=== PATIENT | male | born 1955 | race Caucasian/White ===

== ENCOUNTER 2024-04-07 10:30 | Outpatient (AMB) | payer OTHER, SELFPAY ==
--- NOTE | 2024-04-07 10:44 | MHC.OFFWIV ---
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 Started Saturday after opening tailgate on [employer]. Only hurts when moving. 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 Patient has tried Tylenol and he with limited effect. Patient denies any saddle anesthesia, lower extremity paresthesias, loss of bowel or bladder function. Patient denies any significant past medical history, denies taking any daily medications. He drinks socially, and smokes regularly. [facility] Social History Patient Tobacco Use Status: Current everyday Tobacco user Review of Systems Const Reports as per HPI, Denies fever(s), Denies headache(s) and Denies weakness ENT Denies headache(s) Card Denies dyspnea Resp Denies dyspnea GI Denies change in bowel habits and Denies fecal incontinence Denies urinary incontinence Musc Reports as per HPI, Reports back pain, Denies numbness, Denies radiating pain into limb, Reports stiffness and Denies tingling Neuro Denies headache(s), Denies numbness, Denies tingling and Denies weakness Physical Exam Vital Signs: Last Vital Signs Temp 98.6 F 04/07/24 10:45 Pulse 57 04/07/24 10:45 BP 128/76 04/07/24 10:45 Pulse Ox 98 04/07/24 10:45 Oxygen Delivery Method Room Air 04/07/24 10:45 BMI result Body Mass Index 26.3 Const General: cooperative, healthy appearing and no acute distress Orientation/consciousness: patient oriented x3 HEENT Head: Yes normal to inspection Neck Neck: Yes full ROM General: Yes no CVA tenderness Back/Spine/Pelvis Other: Unable to perform started exercising SLR, patient unable to climb on the exam table. Notably limited range of motion of lumbar spine, patient ambulates with antalgic gait, using a cane which is not his baseline Back: no CVA tenderness Cervical Spine: cervical ROM normal Thoracic/Lumbar Spine: thoracic and lumbar spine normal to inspection, paraspinal muscle tenderness, thoraco-lumbar ROM limited, thoraco-lumbar spasm and No straight leg raise positive Neuro General: patient oriented x3 Assessment & Plan Assessment & Plan (1) Acute low back pain: Code(s): M54.50 - Low back pain, unspecified Qualifiers: Back pain laterality: bilateral Sciatica presence: without sciatica Qualified Code(s): M54.50 - Low back pain, unspecified Plan: Given acute onset and patient age, will assess for spondylosis or spondylolisthesis, low concern for fracture. Patient educated in routine exercise and movement for low back pain, prescribed ibuprofen t.i.d., and baclofen as needed. Reviewed ED precautions, risks and benefits of medications, and discouraged overuse of either the anti-inflammatory for the muscle relaxant. Orders: Orders XR lumbar spine 2-3V Today M54.50 - Low back pain, unspecified Medications: New ibuprofen Take TID for 7 days, then every 8 hours as needed for pain 800 mg PO Q8H PRN 30 tabs 0RF pain, moderate baclofen Take one to two tablet as needed for muscle spasm every 8 hours 5 mg PO TID PRN 20 tabs 0RF muscle spasm Coding Level of Care Code New Pt Level 4 (98602) Diagnoses Acute bilateral low back pain without sciatica M54.50 Back pain laterality: bilateral Sciatica presence: without sciatica
[2024-04-07 10:45] VITALS: BP 128/76; PULSE 57; TEMP 37; O2SAT 98; BMI 26.3
== END 2024-04-07 11:32 | disposition home or self-care (01) ==
PROVIDERS: Visit Provider Emergency Medicine
DX: M54.50 Low back pain, unspecified (principal)
CPT/HCPCS: 99203

== ENCOUNTER 2024-04-07 11:21 | Outpatient (REF) | payer OTHER, SELFPAY ==
--- NOTE | ~2024-04-07 | XR_ITS ---
EXAMINATION: XR LUMBOSACRAL SPINE CLINICAL INFORMATION: Lower back pain. COMPARISON: Lumbar spine radiographs dated 06/03/2017. TECHNIQUE: Three views of the lumbosacral spine. FINDINGS: Normal vertebral body alignment. The lumbar lordosis is maintained. No acute fracture or subluxation. No loss of vertebral body height. Mild multilevel loss of intervertebral disc with small endplate osteophytes, similar when compared to the prior examination. No concerning lytic or blastic osseous lesion. Atherosclerotic calcifications. XR/XR lumbar spine 2-3V IMPRESSION: Mild multilevel degenerative disc disease, similar when compared to the prior examination. Electronically signed by: Ochoa Rahman MD 04/27/2024 09:13 PM EDT
== END 2024-04-07 11:22 | disposition home or self-care (01) ==
LOC: HO.HMGCX 11:21
PROVIDERS: Visit Provider Emergency Medicine
DX: M54.50 Low back pain, unspecified (principal)
CPT/HCPCS: 72100

== ENCOUNTER 2025-06-07 11:10 | Outpatient (AMB) | payer OTHER, SELFPAY ==
--- NOTE | 2025-06-07 12:18 | MHC.OFFWIV ---
Intake Vital Signs 06/07/25 12:19 Height 5 ft 7.5 in Weight 170 lb BMI 26.2 BP 160/80 H Blood Pressure Location Lt brachial Position Sitting Pulse 77 Pulse Source Pulse Oximeter Temp 99 F Temp Source Oral Pulse Oximetry (%) 99 Oxygen Delivery Method Room Air Intake Visit Reasons: EP-stomach issues, body ache Intake Note: Patient presents with c/o inability to urinate, groin pain x3 days. Patient Tobacco Use Status: Current everyday Tobacco user Allergies No Known Allergies Allergy (Verified 06/07/25 12:21) Do you need a note to return to daycare/school/sports/work: No HPI HPI Comments History of Present Illness Details 70 y/o Male patient who presents to the walk in clinic with c/o Inability to Urinate for 3 days. Reports attempting to urinate but very little urine comes out. Reports burning with urination and bladder pressure. Reports that the urine has foul odor and Mucoid in color. He did have an episode of diarrhea on Saturday. Denies fevers, chills, nausea or vomiting. [facility] Medical History (Updated 06/07/25 @ 13:29 by Loraine Branch NP) Urinary retention with incomplete bladder emptying Social History Patient Tobacco Use Status: Current everyday Tobacco user Review of Systems Const All systems reviewed & are unremarkable except as noted in HPI and below Physical Exam Vital Signs: Last Vital Signs Temp 99 F 06/07/25 12:19 Pulse 77 06/07/25 12:19 BP 160/80 H 06/07/25 12:19 Pulse Ox 99 06/07/25 12:19 Oxygen Delivery Method Room Air 06/07/25 12:19 BMI result Body Mass Index 26.2 Const General: no acute distress; No comfortable Nutritional Appearance: overweight Orientation/consciousness: patient oriented x3 Resp Effort & Inspection: normal respiratory effort Cardio Heart sounds: S1 normal heart sound present and S2 normal heart sound present GI Inspection: Yes distended and Yes obesity Palpation (GI): Soft to palpation, not firm, Tenderness to palpation present (GI) periumbilically and suprapubicly, no guarding, not rigid and No hepatosplenomegaly present Auscultation: Hypoactive bowel sounds present Rectal Exam - Male: Yes deferred General: Yes no CVA tenderness Back/Spine/Pelvis Back: no CVA tenderness Neuro General: patient oriented x3 Assessment & Plan Assessment & Plan (1) Urinary retention with incomplete bladder emptying: Code(s): R33.9 - Retention of urine, unspecified Plan: Advised to go to ED for further evaluation. Pt might need Straight Cath or Escobar Catheter. Pt agreed and he will drive himself to the [facility] ED today. Coding Level of Care Code New Pt Level 4 (96242) Diagnoses Urinary retention with incomplete bladder emptying R33.9 Time Spent (min) 20
[2025-06-07 12:19] VITALS: BP 160/80; PULSE 77; TEMP 37.2; O2SAT 99; BMI 26.2
--- OUTSIDE RECORDS SUMMARY | 2025-06-07 14:17 | XMS_ITS | Clinical Summary ---
Author Organization [facility] Address [address] [place] [address] Phone Care Team Providers Care Culinary Instructor Name Role Phone Saw Walden MD Primary Care Provider [phone] Medical History Medical History Date Comments Hypertension 12/27/2017 DX:Hypertension Depression 12/27/2017 DX:Depression Anxiety 12/27/2017 DX:Anxiety Vitamin D deficiency 12/27/2017 DX:Vitamin D deficiency Hyperlipidemia 12/27/2017 DX:Hyperlipidemi a CAD (coronary artery disease) 12/09/2017 DX :CAD (coronary artery disease); COMMENT: 01/2014 EF 60-65%; [place] 03/2011 d/t cocaine use, s/p RCA stent with repeat stenting and angioplasty. Dr. Dawn; Erectile dysfunction 12/09/2017 DX:Erectile dysfunction Tobacco dependence 12/09/2017 DX:Tobacco de pendence History of substance abuse ( [facility] V24, [facility] V28) 04/09/2018 DX:History of substance abus e ([facility]); COMMENT: 2012 hx alcohol w/d; cocaine Prediabetes 04/09/2018 DX:Prediabetes DDD (degenerative disc disease), lumbar 12/10/19 18 DX:DDD (degenerative disc disease), lumbar; COMMENT: Left foot drop, follows w/ [facility] Family History Medical History Relation Name Comments No Known Problems Brother No Known Problems Daughter 1 No Known Problems Daughter 2 Pneumonia Father Diabetes Mother No Known Problems Sister No Known Problems Son 1 No Known Problems Son 2 No Known Problems Son 3 Relation Name Status Comments Brother Alive Daughter 1 Alive Daughter 2 Alive Father Mother Alive Sister Alive Son 1 Alive Son 2 Alive Son 3 Alive Social History Tobacco Use Types Packs/Day Years Used Date Smoking Tobacco: Every Day Cigarettes Smokeless Tobacco: Never Alcohol Use Standard Drinks/Week Comments Yes 0 (1 standard drink = 0.6 oz pur e alcohol) Sex and Gender Information Value Date Recorded Sex Assigned at Not on file Legal Sex Male 5:58 PM EST Gender Identity Not on file Sexual Orientation Not on file Obstetrics History Last Filed Vital Signs Vital Sign Reading Time Taken Comments Blood Pressure 126/58 09/12/2023 1:36 PM EST Pulse 64 09/12/2023 1:19 PM EST Temperature - - Respiratory Rate - - Oxygen Saturation - - Inhaled Oxygen Concentration - - Weight 79.2 kg (174 lb 11.2 oz) 09/12/2023 1:19 PM EST Height 170.2 cm (5' 7 ) 04/12/2023 2:1 7 PM EDT Body Mass Index 27.36 04/12/2023 2:17 PM EDT Plan of Treatment Health Maintenance Due Date Last Done Comments Colorectal Cancer Screening: Colonoscopy 1955 Pneumococcal Vaccine: 50+ Years (1 of 2 - PCV) 1973 Zoster Vaccines (1 of 2) 02/27/2004 Cholesterol Screening (Lipid Panel) 07/22/2022 Falls Risk Assessment 07/22/2022 Hepatitis C Screening 07/22/2022 Hypertension/CHF/CAD Annual BMP Blood Test 07/22/2022 Social Influencers of Health Screening 07/22/2022 Depression Screening 08/12/2024 COVID-19 Vaccine (1 - 2023-2 5 season) 2025 Influenza Vaccine (#1) 2025 RSV Immunization Adult Patients (1 - 1-dose 75+ series) 2029 DTaP,Tdap,and Td Vaccines (2 - Td or Tdap) 09/12/2033 09/12/2023 Abdominal Aortic Aneurysm (AAA) Screen Completed 05/16/2022 Lung Cancer Screening (Low Dose CT) Discontinued 08/21/2023, 07/24/2022 HIB Vaccines Aged Out No longer eligi ble based on patient's age to complete this topic HPV Vaccines Aged Out No longer eligi ble based on patient's age to complete this topic Hepatitis A Vaccines Aged Out No long er eligible based on patient's age to complete this topic Hepatitis B Vaccines Aged Out No long er eligible based on patient's age to complete this topic IPV Vaccines Aged Out No longer eligi ble based on patient's age to complete this topic MMR Vaccines Aged Out No longer eligi ble based on patient's age to complete this topic Meningococcal ACWY Vaccine Aged Out N o longer eligible based on patient's age to complete this topic Meningococcal B Vaccine Aged Out No l onger eligible based on patient's age to complete this topic RSV Immunization Patients Under 20 months Aged Out No longer eligible based on patient's age to complete this topic Varicella Vaccines Aged Out No longer eligible based on patient's age to complete this topic Procedures Procedure Name Priority Date/Time Associated Diagnosis Comments CT LUNG SCREENING LOW DOSE Routine 08/21/2023 10:26 AM EST Encounter for screening for malignant neoplasm of respiratory organs US ABDOMINAL AORTA REAL TIME SCREEN STUDY AAA Routine 05/16/2022 1:30 PM EDT Encounter for screening for cardiovascular disorders from Last 3 Months or Most Recently Relevant to Health Maintenance Results * CT LUNG SCREENING LOW DOSE (08/21/2023 10:26 AM EST) Anatomical Region Laterality Modality Computed Tomogra phy 08/15/2023 12:5 0 PM EST Narrative 08/21/2023 10:26 AM EST [facility] Diagnostic Imaging Department [address] [place] [address] Patient: GONZALEZ JOAQUIN D.O.B./Age/Sex: 1955 - 68 - M Unit#: [id number] Location/Status: SPDICATLS/REG CLI Mnemonic/Ordering Site: [facility] Ordering Physician: HARRISON KUMAR MD CT Lung Screening Low Dose - 08/15/23 - 1256 Report Status:Signed History: 68 year-old 56 pack-year current smoker, asymptomatic, for lung cancer screening. Known coronary artery disease. Asbestos exposure. Comparison: 07/24/22 Technique: Helical volumetric imaging of the thorax was performed, using low- dose technique, without IV contrast. DLP: 188.80 mGy/cm CTDIvol: 4.83 mGy [employer] VCT Iterative reconstruction technique Findings: Lungs and Airways: The trachea and central bronchial tree remain patent. Centrilobular and paraseptal emphysema are again noted. Minimal discoid atelectasis or scar is present at the lung bases, unchanged. A 3 mm solid, noncalcified nodule is seen in the right lower lobe (image 162 series 3), unchanged. Rare sub-3 mm nodules in both lungs are also without significant change. Few homogeneously calcified nodules are consistent with old granulomatous disease. Pleura: No pleural or pericardial effusions are identified. No pleural calcification is seen. Base of neck, mediastinum and heart: Mild left ventricular enlargement is seen. There is severe three-vessel coronary artery calcification. Moderate mural calcification of the thoracic aorta is seen. 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 No developing thoracic lymphadenopathy is seen. Soft tissues: The overlying soft tissues are unremarkable. Abdomen: This study was performed without contrast and with lower than standard dose. These factors reduce the sensitivity for detection of small lesions in the upper abdomen. A 6 mm nonobstructing left renal calculus is noted and a left upper pole renal cyst is again seen. Impression: No suspicious developing pulmonary nodule. No significant change. Lung RADS 2: Benign Appearance or Behavior - Continue annual screening with LDCT in 12 months. [id number] [id number] [id number] Dictating Physician: MERLE SHIPLEY MD Electronically Signed by: MERLE SHIPLEY MD Dic Date/Time: 08/21/23 1015 Sign date/Time: 08/21/23 1026 Procedure Note Merle Shipley MD - 03/30/2024 [facility] Diagnostic Imaging Department [address] [place] [address] [id number] Patient: GONZALEZ JOAQUIN /Age/Sex: 1955 - 68 - M Unit#: [id number] Location/Status: SPDICATLS/REG CLI Mnemonic/Ordering Site: [facility] Ordering Physician: HARRISON KUMAR MD CT Lung Screening Low Dose - 08/15/23 - 1256 Report Status:Signed History: 68 year-old 56 pack-year current smoker, asymptomatic, for lungcancer screening. Known coronary artery disease. Asbestos exposure. Comparison: 07/24/22 Technique: Helical volumetric imaging of the thorax was performed, usinglow- dose technique, without IV contrast. DLP: 188.80 mGy/cm CTDIvol: 4.83 mGy [employer] VCT Iterative reconstruction technique Findings: Lungs and Airways: The trachea and central bronchial tree remain patent. Centrilobular and paraseptal emphysema are again noted. Minimal discoid atelectasis or scar is present at the lung bases, unchanged. A 3 mm solid, noncalcified nodule is seen in the right lower lobe ([id number] series 3), unchanged. Rare sub-3 mm nodules in both lungs are alsowithout significant change. Few homogeneously calcified nodules are consistentwith old granulomatous disease. Pleura: No pleural or pericardial effusions are identified. No pleural calcification is seen. Base of neck, mediastinum and heart: Mild left ventricular enlargement isseen. There is severe three-vessel coronary artery calcification. Moderatemural calcification of the thoracic aorta is seen. 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 No developing thoracic lymphadenopathy is seen. Soft tissues: The overlying soft tissues are unremarkable. Abdomen: This study was performed without contrast and with lower thanstandard dose. These factors reduce the sensitivity for detection of small lesionsin the upper abdomen. A 6 mm nonobstructing left renal calculus is noted and aleft upper pole renal cyst is again seen. Impression: No suspicious developing pulmonary nodule. No significant change. Lung RADS 2: Benign Appearance or Behavior - Continue annual screeningwith LDCT in 12 months. [id number] [id number] [id number] [id number] Dictating Physician: MERLE SHIPLEY MD Electronically Signed by: MERLE SHIPLEY MD Dic Date/Time: 08/21/23 1015 Sign date/Time: 08/21/23 1026 us Harrison Kumar MD IMG CT PROCEDURES Final Result * US ABDOMINAL AORTA REAL TIME SCREEN STUDY AAA (05/16/2022 1:30 PM EDT) Anatomical Region Laterality Modality Ultrasound 05/09/2022 3:46 PM EDT Narrative 05/16/2022 3:10 PM EDT US ABDOMINAL AORTA REAL TIME SCREEN STUDY AAA ABDOMINAL AORTA SCREENING ULTRASOUND History: For abdominal aortic aneurysm. Comparison: None. FINDINGS: The proximal aorta measures 2.2 cm in diameter. The mid aorta measures 1.8 cm in diameter. The distal aorta measures 1.8 cm in diameter. No periaortic fluid collection is seen. The aortic bifurcation is normal in appearance. The proximal bilateral common iliac arteries are normal in caliber. IMPRESSION: IMPRESSION: No visualized abdominal aortic aneurysm. Procedure Note Xochitl Melvin MD - 07/31/2022 US ABDOMINAL AORTA REAL TIME SCREEN STUDY AAA ABDOMINAL AORTA SCREENING ULTRASOUND History: For abdominal aortic aneurysm. Comparison: None. FINDINGS: The proximal aorta measures 2.2 cm in diameter. The mid aortameasures 1.8 cm in diameter. The distal aorta measures 1.8 cm in diameter. No periaorticfluid collection is seen. The aortic bifurcation is normal in appearance. The proximal bilateralcommon iliac arteries are normal in caliber. IMPRESSION: IMPRESSION: No visualized abdominal aortic aneurysm. us Joaquin Rodriguez NP IMG US PROCEDURES Final Result from Last 3 Months or Most Recently Relevant to Health Maintenance Insurance MEDICARE [facility] Care Teams Culinary Instructor Relationship Specialty Start Date End Date Saw Walden MD PCP - General Internal Medicine 12/08/21
== END 2025-06-07 13:44 | disposition home or self-care (01) ==
PROVIDERS: PCP Family Medicine; Visit Provider Nurse Practitioner Family
DX: R33.9 Retention of urine, unspecified (principal)

== ENCOUNTER 2025-06-08 13:35 | Inpatient (IN) | payer OTHER, SELFPAY ==
--- NOTE | ~2025-06-08 | CT_ITS ---
EXAMINATION: CT ABDOMEN PELVIS WITHOUT IV CONTRAST HISTORY: obstructive uropathy COMPARISON: There are no prior studies available for comparison. TECHNIQUE: CT scan of the abdomen and pelvis was performed without contrast using standard departmental protocol. Coronal and sagittal reformatted images were generated and reviewed. This CT exam was performed with one or more of the following dose reduction techniques: automated exposure control, adjustment of the mA and/or kV according to patient size, use of iterative reconstruction technique. DLP: 09 mGy-cm FINDINGS: LOWER CHEST: Elevated right hemidiaphragm. Subsegmental atelectasis at the right lung base and small right pleural effusion. The left lung base is clear. CARDIOVASCULATURE: Only enlarged heart and coronary artery calcification. There is no pericardial effusion. LIVER: The liver is normal in size and contour. Small 7 mm low-attenuation lesion in the central liver axial image 22 series 3 difficult to accurately characterize. GALLBLADDER / BILE DUCTS: The gallbladder is unremarkable. There is no intra or extrahepatic biliary ductal dilatation. SPLEEN: The spleen is normal in size and has an unremarkable unenhanced appearance. PANCREAS: The pancreas has an unremarkable unenhanced appearance. ADRENAL GLANDS: Thickening of the left adrenal gland. Right adrenal gland not well visualized due to perinephric fluid and fat stranding. KIDNEYS/RETROPERITONEUM: There is significant fat stranding surrounding the right kidney and the right perinephric space and posterior pararenal fascia. LYMPH NODES: No retroperitoneal lymphadenopathy is identified in the abdomen or pelvis. VASCULATURE: Atherosclerotic disease. No aneurysm. MESENTERY/PERITONEUM: There is a small amount of ascites. There is a small amount of fluid and fat stranding is seen in the extraperitoneal space anterior to the bladder in the pelvis. No free air. STOMACH: Small esophageal hernia. Underdistended stomach. SMALL BOWEL: The small bowel is normal in caliber. COLON: Air-filled distended colon suggestive of an ileus. APPENDIX: Not seen. URINARY BLADDER/PELVIC ORGANS: Escobar catheter in the bladder. The bladder is empty. The prostate gland is very enlarged measuring 6.5 x 7.5 cm in AP and transverse dimension. Hounsfield units measure 4 suggestive of simple fluid. There are small calcifications in the upper pole of the right kidney. These may be vascular. No right hydronephrosis. The right ureter is dilated down to the bladder. No stone is seen. There is a 4 mm stone in the upper pole of the left kidney. No left hydronephrosis. The left ureter is dilated down to the bladder. No left ureteral stone is seen. BONES / SOFT TISSUES: Mild degenerative changes of the spine and hips. No suspicious bony or soft tissue abnormalities. CT/CT abdomen pelvis wo IV con IMPRESSION: Fat stranding and fluid surrounding the right kidney in the perinephric space. This does not appear high attenuation to confirm hemorrhage. No hydronephrosis. Bilateral ureteral dilatation down to the bladder. Right perinephric fat stranding and fluid may be secondary to obstruction and represent backflow of urine. Differential would include hematoma and trauma to the kidney. Small nonobstructing left renal stone. No ureteral stone. Ecsobar catheter in the bladder. The bladder is empty. Markedly enlarged prostate gland. Small amount of generalized ascites and small amount of fluid and fat stranding and peritoneal space in the pelvis anterior to the bladder. Air-filled distended colon probably representing an ileus. Findings communicated to the ordering provider Lay Wu by Shidler matthew 06/08/2025 at 4:30 PM. Electronically signed by: Bina Alfaro MD 06/08/2025 04:34 PM EDT
[2025-06-08 14:05] VITALS: BP 179/87; PULSE 78; RESP 18; O2SAT 95; BMI 25.1
[2025-06-08 14:26] LABS: MANUAL DIFF FLAG NO
[2025-06-08 14:27] LABS: Hematocrit 50.1 % (42.0-52.0); Hemoglobin 17.5 g/dl (14.0-18.0); Imm Gran Abs Auto 0.06 X10*3/uL (0.00-0.03); Imm Gran Pct Auto 0.4 % (0.0-0.4); Lymphocytes Absolute Auto 1.8 X10*3/uL (1.2-4.9); Mean Corpuscular HGB Conc 34.9 g/dl (31.0-36.0); Mean Corpuscular Hemoglobin 32.7 pg (27.0-33.0); Mean Corpuscular Volume 93.6 fL (80.0-98.0); NRBC Abs Auto 0.000 X10*3/uL (0.0-0.012); NRBC Pct Auto 0.0 /100WBC (0.0-0.2); Platelet Count 188 X10*3/uL (160-400); Red Blood Count 5.35 X10*6/uL (4.60-5.80); White Blood Count 16.5 X10*3/uL (4.8-10.8)
--- NOTE | 2025-06-08 14:38 | ED_ITS ---
HPI - Male Genitourinary General Chief complaint: Urogenital-Male Stated complaint: Unable to urinate 4 days Time Seen by Provider: 06/08/25 14:17 Source: patient Mode of arrival: ambulatory Limitations: no limitations History of Present Illness HPI Narrative: This is a 70 years old the patient presented to the emergency department with a chief complaint of inability of urinate since Saturday. Complaint: other (Unable to urinate) Onset (ago): day(s) (2) Duration: constant Severity: severe Quality: aching Relieving factors: none Exacerbating factors: none Related Data Allergies Allergy/AdvReac Type Severity Reaction Status Date / Time No Known Allergies Allergy Verified 06/08/25 14:08 Review of Systems 2 Constitutional: Constitutional: Reports no additional constitutional complaints ENT: Reports system reviewed and no additional complaints, except as documented Gastrointestinal: Gastrointestinal: Reports no additional gastrointestinal complaints Genitourinary: Genitourinary: Reports as per [facility] Past Medical History Attestation statement: The following information was validated with the patient. [facility] Narrative: He denies any major medical problems Medical History Urinary retention with incomplete bladder emptying Social History Social History Patient Tobacco Use Status: Current everyday Tobacco user Advance Directives: No Advance Directives Information Provided: Yes Physical Exam 2 Exam: Exam: Severe distress Vital Signs: Vital Signs: Last Vital Signs Temp 98.5 F 06/08/25 14:46 Pulse 70 06/08/25 14:46 Resp 19 06/08/25 14:46 BP 169/73 H 06/08/25 14:46 Pulse Ox 94 06/08/25 14:46 O2 Del Method Room Air 06/08/25 14:46 BMI result Body Mass Index 25.1 Vital signs were reviewed by ks blood pressure 179/87 Const: General: cooperative Nutritional Appearance: well nourished O rientation/consciousness: patient oriented x3 Limitations: no limitations HEENT: Head: Yes normal to inspection Face and sinus: Yes normal facial exam Mouth: Normal oral and palatal mucosa present Neck: Neck: Yes normal visual inspection Chest: Chest palpation & inspection: normal inspection of the chest Cardio: Jugular venous distension: no JVD Rate: regular rate Rhythm: r egular rhythm GI: Inspection: Yes normal to inspection Palpation (GI): Soft to palpation, not firm, nontender and no guarding Auscultation: normal bowel sounds Skin: General skin exam: no rashes or lesions noted and elasticity normal Neuro: General: patient oriented x3 Course Reevaluation(s) Reevaluation #1: Escobar catheter was inserted by the nurse with 1300 cc of urine obtained labs resulted patient has a acute renal failure creatinine of 6.5 BUN 66, bicarbonate is 18 he has a an anion gap of 23 we will admit Time: 15:03 Medications Administered Generic Name Dose Route Start Last Admin Trade Name Freq PRN Reason Stop Dose Admin Sodium Chloride 1,000 mls @ 999 mls/hr 06/08/25 15:00 06/08/25 15:18 Ns IVCONT 06/08/25 16:00 999 mls/hr .Q1H1M KAMILA Administration Medical Decision Making Medical Decision Making [facility] Narrative: The patient presented with a inability to urinate a bladder scan done showed the 1300 cc of urine we will go ahead and place a catheter Differential Diagnosis Differential Diagnoses: The differential diagnosis associated with the presentation includes BPH/prostatitis Admission/Observation Consideration of admission/observation: Escalation of care including admission/observation considered Consult Healthcare Provider Management of the patient was discussed with: Hospitalist Lab Data MDM Lab Attestation statement: I reviewed the patient's lab results. 06/08/25 14:21 06/08/25 14:21 Labs: Lab Results 06/08/25 06/08/25 Range/Units 14:21 14:34 WBC 16.5 H (4.8-10.8) X10*3/uL RBC 5.35 (4.60-5.80) X10*6/uL Hgb 17.5 (14.0-18.0) g/dl Hct 50.1 (42.0-52.0) % MCV 93.6 (80.0-98.0) fL MCH 32.7 (27.0-33.0) pg MCHC 34.9 (31.0-36.0) g/dl RDW 13.1 (11.0-16.0) % Plt Count 188 (160-400) X10*3/uL MPV 10.1 (9.4-12.4) fL Immature Gran % (Auto) 0.4 (0.0-0.4) % Neut % (Auto) 79.8 H (45-73) % Lymph % (Auto) 10.7 L (20-40) % [place] % (Auto) 8.6 (2-11) % Eos % (Auto) 0.3 (0-4) % Baso % (Auto) 0.2 (0-2) % Lymph # (Auto) 1.8 (1.2-4.9) X10*3/uL [place] # (Auto) 1.4 H (0.1-1.2) X10*3/uL Eos # (Auto) 0.1 (0.0-0.4) X10*3/uL Baso # (Auto) 0.0 (0.0-0.2) X10*3/uL Abs Immat Gran (auto) 0.06 H (0.00-0.03) X10*3/uL Absolute Neuts (auto) 13.2 H (2.0-8.3) x10*3/uL Absolute Nucleated RBC 0.000 (0.0-0.012) X10*3/uL Nucleated RBC % (auto) 0.0 (0.0-0.2) /100WBC Sodium 137 (135-145) mmol/L Potassium 4.5 (3.3-5.1) mmol/L Chloride 101 (96-108) mmol/L Carbon Dioxide 18 L (22-29) mmol/L Anion Gap 23 H (12-20) BUN 66 H (9-16) mg/dL Creatinine 6.56 H* (0.5-1.4) mg/dL Estim Creat Clear Calc 9.9 Estimated GFR 8 Random Glucose 140 H (60-115) mg/dL Calcium 9.4 (8.4-10.2) mg/dL Total Bilirubin 1.7 H (0.0-1.0) mg/dL AST 22 (5-37) U/L ALT 23 (0-40) U/L Alkaline Phosphatase 60 (39-117) U/L Total Protein 7.2 (6.5-8.0) g/dL Albumin 4.5 (3.5-5.0) g/dL Urine Color Yellow Urine Appearance Clear Urine pH 6.0 (5.0-9.0) Ur Specific [place] 1.015 (1.005-1.025) Urine Protein Negative (Neg-Trace) mg/dL Urine Glucose (UA) Negative (Negative) mg/dL Urine Ketones Trace (Negative) mg/dL Urine Blood Small (1+) H (Negative) Urine Nitrite Negative (Negative) Ur Leukocyte Esterase Negative (Negative) Urine RBC 11-20 H (0-2) /HPF Urine WBC 0-5 (0-5) /HPF Ur Squamous Epith Cells 0-2 (0-2) /HPF Urine Bacteria None Seen (None Seen) Hyaline Casts 0-2 (0-2) /LPF Critical Care Time Critical Care Time Critical Care Time: Yes Total Critical Care Time: 60 Attestation: acute renal failure/metabolic acidosis with anion gap Discharge Plan Discharge Clinical Impression: Metabolic acidosis, High anion gap metabolic acidosis Urinary tract infection Qualifiers: Urinary tract infection type: site unspecified Hematuria presence: without hematuria Qualified Code(s): N39.0 - Urinary tract infection, site not specified Acute renal failure Qualifiers: Acute renal failure type: unspecified Qualified Code(s): N17.9 - Acute kidney failure, unspecified Patient Disposition: Admitted As Inpatient Print Language: Pakistani
[2025-06-08 14:43] LABS: Appearance Urine Clear; Glucose Urine UA Negative (Negative); PH 6.0 (5.0-9.0); Specific Gravity - Urine 1.015 (1.005-1.025); UMIC TRIGGER UACC YES
[2025-06-08 14:46] VITALS: BP 169/73; PULSE 70; RESP 19; TEMP 36.9; O2SAT 94
[2025-06-08 14:51] LABS: Alanine Aminotransferase 23 U/L (0-40); Albumin Level 4.5 g/dL (3.5-5.0); Alkaline Phosphatase 60 U/L (39-117); Anion Gap 23 (12-20); Aspartate Amino Transferase 22 U/L (5-37); Blood Urea Nitrogen 66 mg/dL (9-16); Calcium 9.4 mg/dL (8.4-10.2); Carbon Dioxide 18 mmol/L (22-29); Chloride 101 mmol/L (96-108); Creatinine Clr Calc Pharmacy 9.9; Estimated Glomerular Filt Rate 8; Potassium 4.5 mmol/L (3.3-5.1); Sodium 137 mmol/L (135-145); Total Protein 7.2 g/dL (6.5-8.0)
--- NOTE | 2025-06-08 15:20 | P.HPHOSP_ITS ---
History of Present Illness Date of Service: 06/08/25 Chief Complaint: inability to urinate 70-year-old man with no significant medical history presented to ER with complaints of inability to urinate since Saturday. He reports that prior to that he had no medical issues and as a matter of fact he has not seen a medical provider in at least 10 years. Reports that if he had something emergent he will go to urgent care. He denies ever having any issues with urination in the past. He did report that he started feeling pressure and some pain and decided to come to the ER to be evaluated. Abdominal CT showing enlarged prostate without hydronephrosis. UA negative, creatinine 6.56, elevated blood pressure reading. Patient was given a L of IV fluids in the ER. He will be admitted for further management and treatment of obstructive uropathy secondary to enlarged prostate. Review of Systems 2 Review of Systems: Denies any recent fever chills or decrease in appetite respiratory denies any shortness of breath or cough cardiovascular denies chest pain gastrointestinal denies any dysphagia abdominal pain nausea vomiting or diarrhea genitourinary see HPI musculoskeletal denies any joint pain or swelling neuropsych denies any weakness or seizures all other systems reviewed are negative [facility] Medical History (Updated 06/08/25 @ 16:26 by Lay Wu NP) Coronary artery disease Urinary retention with incomplete bladder emptying Family History (Updated 06/08/25 @ 16:26 by Lay Wu NP) Father Influenza Pertinent family history: Father of flu Surgical History (Updated 06/08/25 @ 16:26 by Lay Wu NP) S/P drug eluting coronary stent placement S/P LASIK surgery Social History Patient Tobacco Use Status: Current everyday Tobacco user Advance Directives: No Advance Directives Information Provided: Yes Meds Allergies Allergy/AdvReac Type Severity Reaction Status Date / Time No Known Allergies Allergy Verified 06/08/25 14:08 Active Medications: Current Medications Sodium Chloride (Ns) 1,000 mls @ 999 mls/hr IVCONT .Q1H1M KAMILA Stop: 06/08/25 16:00 Last Admin: 06/08/25 15:18 Dose: 999 mls/hr Physical Exam 2 Vital Signs and Narrative: Vital Signs: Last Vital Signs Temp 98.5 F 06/08/25 14:46 Pulse 70 06/08/25 14:46 Resp 19 06/08/25 14:46 BP 169/73 H 06/08/25 14:46 Pulse Ox 94 06/08/25 14:46 O2 Del Method Room Air 06/08/25 14:46 BMI result Body Mass Index 25.1 Appearing in no acute distress head is normocephalic atraumatic eyes pupils are PERRLA sclera is anicteric mouth throat mucous membranes are intact and moist neck is supple no lymphadenopathy, no JVD noted lung sounds are clear to auscultation heart regular rate rhythm, clear S1, S2 positive bowel sounds, abdomen is soft, nontender neuro patient is alert x3, no focal deficits Results Labs 06/08/25 14:21 06/08/25 14:21 Labs: Laboratory Results - last 24 hr 06/08/25 06/08/25 14:21 14:34 MCV 93.6 MCH 32.7 MCHC 34.9 RDW 13.1 Plt Count 188 MPV 10.1 Immature Gran % (Auto) 0.4 Neut % (Auto) 79.8 H Lymph % (Auto) 10.7 L [place] % (Auto) 8.6 Eos % (Auto) 0.3 Baso % (Auto) 0.2 Lymph # (Auto) 1.8 [place] # (Auto) 1.4 H Eos # (Auto) 0.1 Baso # (Auto) 0.0 Abs Immat Gran (auto) 0.06 H Absolute Neuts (auto) 13.2 H Absolute Nucleated RBC 0.000 Nucleated RBC % (auto) 0.0 Anion Gap 23 H Estim Creat Clear Calc 9.9 Estimated GFR 8 Random Glucose 140 H Calcium 9.4 Total Bilirubin 1.7 H AST 22 ALT 23 Alkaline Phosphatase 60 Total Protein 7.2 Albumin 4.5 Urine Color Yellow Urine Appearance Clear Urine pH 6.0 Ur Specific [place] 1.015 Urine Protein Negative Urine Glucose (UA) Negative Urine Ketones Trace Urine Blood Small (1+) H Urine Nitrite Negative Ur Leukocyte Esterase Negative Urine RBC 11-20 H Urine WBC 0-5 Ur Squamous Epith Cells 0-2 Urine Bacteria None Seen Hyaline Casts 0-2 Assessment and Plan (1) Acute renal failure: Qualifiers: Acute renal failure type: unspecified Qualified Code(s): N17.9 - Acute kidney failure, unspecified Status: Acute (2) Urinary retention with incomplete bladder emptying: Status: Acute Plan 70 year old man admitted with urinary retention the patient reports he has not seen a medical provider in 10-15 years. Obstructive uropathy secondary to Urinary retention Escobar catheter placed in the ER Abdominal CT showing enlarged prostate with no hydronephrosis Urology consultation UA negative Check PSA USMAN secondary to obstructive uropathy Creatinine 6.56 Escobar catheter placed and should resolve fairly quickly If no improvement consult Nephrology Elevated blood pressure reading Denies any history of hypertension however he has not seen a primary care provider in many years Monitor blood pressure remains elevated consider starting antihypertensive medication. Tobacco use Patient reports smoking a pack of cigarettes today Nicotine replacement therapy Discussed the importance of smoking cessation DVT prophylaxis with heparin Full code Quality Stroke Does the patient have a stroke diagnosis?: No VTE Prior VTE?: No VTE Risk Level:: Medical - moderate - high VTE Device Contraindication: Treatment Not Indicated VTE Drug Contraindication: N/A - Med Ordered
[2025-06-08 15:59] VITALS: BP 160/77; PULSE 71; RESP 24; TEMP 36.7; O2SAT 96
--- NOTE | 2025-06-08 16:54 | PM.UROCN ---
History of Present Illness Consult details Consult date: 06/08/25 Narrative: CC: Urinary retention 70-year-old male Had not seen a medical provider and last 10 years Present through emergency room with inability to urinate for 3 days Creatinine 6.6 Imaging showed obstructive uropathy Escobar catheter placed 1500 cc immediate drainage WBC 16.5 CT scan reviewed. Perinephric stranding around right kidney consistent with probable calyceal rupture. This would result in creatinine elevating as urine is reabsorbed from retroperitoneum. Would expect resolution with Escobar catheter in place Review of Systems Constitutional: Constitutional: Reports as per HPI and Reports no additional constitutional complaints Cardiovascular: Cardiovascular: Reports as per HPI and Reports no additional cardiovascular complaints Respiratory: Respiratory: Reports as per HPI and Reports no additional respiratory complaints Gastrointestinal: Gastrointestinal: Reports as per HPI and Reports no additional gastrointestinal complaints Genitourinary: Genitourinary: Reports as per HPI Musculoskeletal: Musculoskeletal: Reports no additional musculoskeletal complaints and Reports as per HPI Neurologic: Reports system reviewed and no additional complaints, except as documented and Reports as per HPI [facility] Past Medical History Medical History (Updated 06/08/25 @ 16:26 by Lay Wu NP) Coronary artery disease Urinary retention with incomplete bladder emptying Family History Family History (Updated 06/08/25 @ 16:26 by Lay Wu NP) Father Influenza Surgical History Surgical History (Updated 06/08/25 @ 16:26 by Lay Wu NP) S/P drug eluting coronary stent placement S/P LASIK surgery Social History Social History Household Members: Significant Other Housing: House Do you presently have visiting nurse or other home services: No Patient Tobacco Use Status: Current everyday Tobacco user Tobacco use type: Cigarette Cigarettes Per Day: 15 Smoked in Last 30 Days: Yes Patient Interested in Nicotine Replacement: No Patient Given Instructions on How to Stop Smoking: No Second Hand Smoke Exposure: No Currently Displaying Signs/Symptoms of Drug Intoxication Withdrawal: No Have you been hit, kicked, punched, or otherwise hurt by someone within the past year? If so, by whom?: No Do you feel safe in your current relationship?: Yes Is there a partner from a previous relationship who is making you feel unsafe now?: No Are you made to feel afraid or neglected: No Advance Directives: No Advance Directives Information Provided: Yes Do you have a plan to hurt others: No Plan Recently lost weight without trying: No How much weight loss: Not applicable Eating poorly because of decreased appetite: No Nutrition screen score: 0 Nutrition Risks: No Nutritional Risk Poor oral hygiene: No Meds Allergies Allergy/AdvReac Type Severity Reaction Status Date / Time No Known Allergies Allergy Verified 06/08/25 14:08 Active Medications: Current Medications Acetaminophen (Acetaminophen 325 Mg Tablet) 650 mg PO Q6H PRN PRN Reason: Pain, Mild 1-3,fever,headache Calcium Carbonate (Calcium Carbonate 750 Mg Tab.Chew) 750 mg PO Q4H PRN PRN Reason: Heartburn Heparin Sodium (Porcine) (Heparin Sodium,Porcine 5,000 Unit/Ml Vial) 5,000 unit SUBCUT Q12H KAMILA Magnesium Hydroxide (Milk Of Magnesia 30 Ml Oral.Susp) 30 ml PO DAILY PRN PRN Reason: Constipation Melatonin (Melatonin 3 Mg Tablet) 6 mg PO BEDTIME PRN PRN Reason: Insomnia Nicotine (Nicotine 21 Mg Patch.Td24) 21 mg TRANSDERMA DAILY COUNT INCLUDES THE [facility] Sodium Chloride (0.9 % Sodium Chloride Flush 3 Ml Syringe) 3 ml IVFLUSH QSHIFT COUNT INCLUDES THE [facility] Tamsulosin HCl (Tamsulosin Hcl 0.4 Mg Capsule) 0.4 mg PO DAILY COUNT INCLUDES THE [facility] Last Admin: 06/08/25 16:20 Dose: 0.4 mg Home Medications ?Medication ?Instructions ?Recorded ?Confirmed ?Last Taken ?Type No Known Home Meds 06/08/25 06/08/25 Unknown History Physical Exam Vital Signs: Vital Signs: Last Vital Signs Temp 98.1 F 06/08/25 15:59 Pulse 71 06/08/25 15:59 Resp 24 H 06/08/25 15:59 BP 160/77 H 06/08/25 15:59 Pulse Ox 96 06/08/25 15:59 O2 Del Method Room Air 06/08/25 15:59 BMI result Body Mass Index 25.1 Const: General: cooperative, healthy appearing, comfortable and no acute distress Orientation/consciousness: patient oriented x3 HEENT: Face and sinus: Yes normal facial exam Mouth: moist mucous membranes Neck: Neck: Yes normal visual inspection, Yes full ROM and Yes trachea midline Chest: Chest palpation & inspection: normal inspection of the chest Resp: Effort & Inspection: normal respiratory effort, able to speak in complete sentences and no respiratory distress GI: Inspection: Yes normal to inspection Back/Spine/Pelvis: Cervical Spine: normal cervical lordosis Thoracic/Lumbar Spine: thoracic and lumbar spine normal to inspection Skin: General skin exam: no rashes or lesions noted Neuro: General: patient oriented x3, tone normal and moves all extremities Extrem: General: Yes normal to inspection and Yes capillary refill normal Results Labs 06/09/25 05:13 06/09/25 05:13 Labs: Abnormal lab results 06/08/25 06/08/25 Range/Units 14:21 14:34 WBC 16.5 H (4.8-10.8) X10*3/uL Neut % (Auto) 79.8 H (45-73) % Lymph % (Auto) 10.7 L (20-40) % [place] # (Auto) 1.4 H (0.1-1.2) X10*3/uL Abs Immat Gran (auto) 0.06 H (0.00-0.03) X10*3/uL Absolute Neuts (auto) 13.2 H (2.0-8.3) x10*3/uL Carbon Dioxide 18 L (22-29) mmol/L Anion Gap 23 H (12-20) BUN 66 H (9-16) mg/dL Creatinine 6.56 H* (0.5-1.4) mg/dL Random Glucose 140 H (60-115) mg/dL Total Bilirubin 1.7 H (0.0-1.0) mg/dL Urine Blood Small (1+) H (Negative) Urine RBC 11-20 H (0-2) /HPF Short CBC 06/08/25 Range/Units 14:21 WBC 16.5 H (4.8-10.8) X10*3/uL Hgb 17.5 (14.0-18.0) g/dl Hct 50.1 (42.0-52.0) % Plt Count 188 (160-400) X10*3/uL BMP 06/08/25 14:21 Sodium 137 Potassium 4.5 Chloride 101 Carbon Dioxide 18 L BUN 66 H Creatinine 6.56 H* Calcium 9.4 Liver Function 06/08/25 Range/Units 14:21 Total Bilirubin 1.7 H (0.0-1.0) mg/dL AST 22 (5-37) U/L ALT 23 (0-40) U/L Alkaline Phosphatase 60 (39-117) U/L Albumin 4.5 (3.5-5.0) g/dL Urine 06/08/25 Range/Units 14:34 Urine Color Yellow Urine Appearance Clear Urine pH 6.0 (5.0-9.0) Ur Specific [place] 1.015 (1.005-1.025) Urine Protein Negative (Neg-Trace) mg/dL Urine Glucose (UA) Negative (Negative) mg/dL All other labs normal. Assessment and Plan (1) Urinary retention with incomplete bladder emptying: Status: Acute (2) Acute renal failure: Qualifiers: Acute renal failure type: unspecified Qualified Code(s): N17.9 - Acute kidney failure, unspecified Status: Acute Plan Watch creatinine Procedures Date of Service Date of Service: 06/09/25
--- NOTE | 2025-06-08 17:22 | HO.NURTONUR ---
70 yo male presented to ED for concerns of urinary retention, unable to urinate since Saturday AM. +Abd distention noted on arrival with lower abd discomfort. Coude cath placed on arrival with initial output of about 1200ml. PIV in place. Pt alert and oriented. VSS. Afebrile. In stretcher
--- NOTE | 2025-06-08 17:26 | PHA.MEDREC ---
Pharmacy Consult ? Medication Reconciliation Pharmacy has completed the medication reconciliation. Patient reports no home rx or otc medications.
[2025-06-08 18:30] VITALS: BP 160/75; PULSE 65; RESP 16; TEMP 36.7; O2SAT 98
--- OUTSIDE RECORDS SUMMARY | 2025-06-08 19:05 | XMS_ITS | Clinical Summary ---
Author Organization [facility] Address [address] [place] [address] Phone Care Team Providers Care Lodging Facilities Manager Name Role Phone Saw Walden MD Primary Care Provider [phone] Medical History Medical History Date Comments Hypertension 12/27/2017 DX:Hypertension Depression 12/27/2017 DX:Depression Anxiety 12/27/2017 DX:Anxiety Vitamin D deficiency 12/27/2017 DX:Vitamin D deficiency Hyperlipidemia 12/27/2017 DX:Hyperlipidemi a CAD (coronary artery disease) 12/09/2017 DX :CAD (coronary artery disease); COMMENT: 01/2014 EF 60-65%; [place] 03/2011 d/t cocaine use, s/p RCA stent with repeat stenting and angioplasty. Dr. Dawn; Erectile dysfunction 12/09/2017 DX:Erectile dysfunction Tobacco dependence 12/09/2017 DX:Tobacco de pendence History of substance abuse ( [facility] V24, [facility] V28) 04/09/2018 DX:History of substance abus e ([facility]); COMMENT: 2012 hx alcohol w/d; cocaine Prediabetes [...] PM EST Narrative 08/21/2023 10:26 AM EST [facility] Diagnostic Imaging Department [address] [place] [address] Patient: GONZALEZ JOAQUIN D.O.B./Age/Sex: 1955 - 68 - M Unit#: [id number] Location/Status: SPDICATLS/REG CLI Mnemonic/Ordering Site: [facility] Ordering Physician: HARRISON KUMAR MD CT Lung Screening Low Dose - 08/15/23 - 1256 Report Status:Signed History: 68 year-old 56 pack-year current smoker, asymptomatic, for lung cancer screening. Known coronary artery disease. Asbestos exposure. Comparison: 07/24/22 Technique: Helical volumetric imaging of the thorax was performed, using low- dose technique, without IV contrast. DLP: 188.80 mGy/cm CTDIvol: 4.83 mGy [employer] VCT Iterative reconstruction technique Findings: Lungs and [...] annual screening with LDCT in 12 months. [id number] [id number] [id number] Dictating Physician: MERLE SHIPLEY MD Electronically Signed by: MERLE SHIPLEY MD Dic Date/Time: 08/21/23 1015 Sign date/Time: 08/21/23 1026 Procedure Note Merle Shipley MD - 03/30/2024 [facility] Diagnostic Imaging Department [address] [place] [address] [id number] Patient: GONZALEZ JOAQUIN /Age/Sex: 1955 - 68 - M Unit#: [id number] Location/Status: SPDICATLS/REG CLI Mnemonic/Ordering Site: [facility]/SPCT Ordering Physician: HARRISON KUMAR MD CT Lung Screening Low Dose - 08/15/23 - 1256 Report Status:Signed History: 68 year-old 56 pack-year current smoker, asymptomatic, for lungcancer screening. Known coronary artery disease. Asbestos exposure. Comparison: 07/24/22 Technique: Helical volumetric imaging of the thorax was performed, usinglow- dose technique, without IV contrast. DLP: 188.80 mGy/cm CTDIvol: 4.83 mGy Tier 1 Performance VCT Iterative reconstruction technique Findings: Lungs and Airways: The trachea and central bronchial tree remain patent. Centrilobular and paraseptal emphysema are again noted. Minimal discoid atelectasis or scar is present at the lung bases, unchanged. A 3 mm solid, noncalcified nodule is seen in the right lower lobe ([id number] series 3), unchanged. Rare sub-3 mm nodules [...] Continue annual screeningwith LDCT in 12 months. [id number] [id number] [id number] [id number] Dictating Physician: MERLE SHIPLEY [...] Recently Relevant to Health Maintenance Insurance MEDICARE [facility] Care Teams Lodging Facilities Manager Relationship Specialty Start Date End Date Saw Walden MD PCP - General Internal Medicine 12/08/21
[2025-06-08 19:10] VITALS: BMI 24.9
[2025-06-08 19:52] VITALS: BP 156/67; PULSE 76; RESP 18; TEMP 36.4; O2SAT 94
[2025-06-08] MEDS: 0.9 % Sodium Chloride Flush 3 ML SYRINGE IVFLUSH (23:42)
[2025-06-09 04:00] VITALS: BP 138/88; PULSE 67; RESP 18; TEMP 37.5; O2SAT 95
[2025-06-09 05:46] LABS: Hematocrit 42.2 % (42.0-52.0); Hemoglobin 14.8 g/dl (14.0-18.0); Mean Corpuscular HGB Conc 35.1 g/dl (31.0-36.0); Mean Corpuscular Hemoglobin 32.4 pg (27.0-33.0); Mean Corpuscular Volume 92.3 fL (80.0-98.0); NRBC Abs Auto 0.000 X10*3/uL (0.0-0.012); NRBC Pct Auto 0.0 /100WBC (0.0-0.2); Platelet Count 181 X10*3/uL (160-400); Red Blood Count 4.57 X10*6/uL (4.60-5.80); White Blood Count 11.0 X10*3/uL (4.8-10.8)
[2025-06-09 06:17] LABS: Anion Gap 14 (12-20); Blood Urea Nitrogen 24 mg/dL (9-16); Calcium 8.5 mg/dL (8.4-10.2); Carbon Dioxide 22 mmol/L (22-29); Chloride 105 mmol/L (96-108); Creatinine Clr Calc Pharmacy 76.2; Estimated Glomerular Filt Rate > 60; Potassium 3.6 mmol/L (3.3-5.1); Sodium 137 mmol/L (135-145)
[2025-06-09 06:34] LABS: Prostate Specific Antigen 11.32 ng/mL (<0.05-4.0)
[2025-06-09 07:03] LABS: Hemoglobin A1C 121.0785 umol/L; Total Hemoglobin (HGBA1C) 2885.4384 umol/L
[2025-06-09 07:46] VITALS: BP 159/71; PULSE 61; RESP 18; TEMP 36.6; O2SAT 96
[2025-06-09] MEDS: Nicotine 21 MG PATCH.TD24 TRANSDERMA (08:39)
[2025-06-09] MEDS: 0.9 % Sodium Chloride Flush 3 ML SYRINGE IVFLUSH (08:40)
--- NOTE | 2025-06-09 12:20 | MHC.CM.PN ---
pt lives with is indepedent is still working has own ride home dc plan home n/s
[2025-06-09 15:29] VITALS: BP 121/69; PULSE 80; RESP 18; TEMP 36.4; O2SAT 94
--- NOTE | 2025-06-09 16:09 | PM.DS ---
DS: Providers Provider Date of Service: 06/09/25 Date of admission: 06/08/25 16:34 Date of discharge: 06/09/25 Primary care physician: Randal Huber MD Consults: 06/08/25 15:27 Consult to Urology Routine Consulting Provider: [facility] Reason for consultation: Obstructive uropathy secondary to urinary retention Attending physician on discharge: Phil Hunter Discharging clinician: Phil Hunter DS: Diagnosis Discharge Diagnosis (1) Urinary retention with incomplete bladder emptying: Status: Acute (2) Acute renal failure: Status: Acute DS: Summary Hospital Course Hospital Course: HPI:70-year-old man with no significant medical history presented to ER with complaints of inability to urinate since Saturday. He reports that prior to that he had no medical issues and as a matter of fact he has not seen a medical provider in at least 10 years. Reports that if he had something emergent he will go to urgent care. He denies ever having any issues with urination in the past. He did report that he started feeling pressure and some pain and decided to come to the ER to be evaluated. Abdominal CT showing enlarged prostate without hydronephrosis. UA negative, creatinine 6.56, elevated blood pressure reading. Patient was given a L of IV fluids in the ER. He will be admitted for further management and treatment of obstructive uropathy secondary to enlarged prostate. Hospital course: Patient came to the hospital because of unable to urinate:Abdominal CT showing enlarged prostate with no hydronephrosis, has USMAN: Urinary catheter was placed, given IV fluid, PSA elevated: Patient seems to be improved significantly with the above. Discussed with the urology and recommended: Added Flomax/Proscar: Patient will be following up with Dr. Rosario's office in 3-4 weeks for further management. USMAN: Improved with the hydration/Avina: Patient was strongly encouraged for p.o. intake and hydration, repeat BMP outpatient. CT abdomen was question of ileus: But patient is eating and also producing bowel movements-given Colace/MiraLax p.r.n. for home in case needed for constipation. plan: Flomax/Proscar as prescribed Laxative as above. Monitor BMP outpatient. Encouraged for p.o. hydration/p.o. intake. Patient is to follow up with PCP and Urology outpatient. Above management discussed with the patient in detail length he understand and in agreement with the above plan, time spent 45 minute. Time Attestation Total time managing care of this patient today: 45 mintues. Discharge Coordination Time (in mins): 45 min Quality: Safe Use of Opioids Does Pt have an Active Cancer Diagnosis on the Problem List?: No Quality: Stroke Does the patient have a stroke diagnosis?: No Physical Exam Exam: Exam: Appearance: Alert.? Oriented X3.? cvs: rrr, [id number] . res: clear to auscultation ,no rhonchii or wheezing abd: no rebound or guarding ,nt, bs present. ext pulses present , no cyanosis . -has avina. neuro: axo3 , nonfocal. Vital Signs: Vital Signs: Last Vital Signs Temp 97.6 F 06/09/25 15:29 Pulse 80 06/09/25 15:29 Resp 18 06/09/25 15:29 BP 121/69 06/09/25 15:29 Pulse Ox 94 06/09/25 15:29 O2 Del Method Room Air 06/09/25 15:29 BMI result Body Mass Index 24.9 DS: Data Data Completed and Pending Labs on day of discharge: Laboratory Results - last 24 hr 06/08/25 06/09/25 14:21 05:13 WBC 11.0 H RBC 4.57 L Hgb 14.8 Hct 42.2 MCV 92.3 MCH 32.4 MCHC 35.1 RDW 13.0 Plt Count 181 MPV 10.3 Absolute Nucleated RBC 0.000 Nucleated RBC % (auto) 0.0 Sodium 137 Potassium 3.6 Chloride 105 Carbon Dioxide 22 Anion Gap 14 BUN 24 H Creatinine 0.86 Estim Creat Clear Calc 76.2 Estimated GFR > 60 Random Glucose 205 H Estimat Average Glucose 126 Hemoglobin A1c % 6.0 Calcium 8.5 D Prostate Specific Ag 11.32 H Imaging Chest x-ray: Radiologist's impression: ITS Impressions Abdomen/Pelvis CT 06/08/25 15:35 Impression: Fat stranding and fluid surrounding the right kidney in the perinephric space. This does not appear high attenuation to confirm hemorrhage. No hydronephrosis. Bilateral ureteral dilatation down to the bladder. Right perinephric fat stranding and fluid may be secondary to obstruction and represent backflow of urine. Differential would include hematoma and trauma to the kidney. Small nonobstructing left renal stone. No ureteral stone. Avina catheter in the bladder. The bladder is empty. Markedly enlarged prostate gland. Small amount of generalized ascites and small amount of fluid and fat stranding and peritoneal space in the pelvis anterior to the bladder. Air-filled distended colon probably representing an ileus. Findings communicated to the ordering provider Lay Wu by [place] text 06/08/2025 at 4:30 PM. Discharge Plan Discharge Anticipated Discharge Date/Time: 06/09/25 13:03 Patient Disposition: Home, Self-Care Discharge Diagnosis: Prostate enlargement, USMAN, elevated psa ,Ielus Referrals: Randal Huber MD [Primary Care Provider, Internal Medicine] - 1 Week Discharge Medications: New nicotine 21 mg/24 hr Patch 24 Hour 21 mg transdermal DAILY Qty: 14 0RF tamsulosin 0.4 mg Capsule 0.4 mg PO DAILY Qty: 90 0RF finasteride 5 mg Tablet 5 mg PO DAILY Qty: 90 0RF docusate sodium 100 mg Capsule 100 mg PO BID PRN (Reason: constipation) Qty: 60 0RF polyethylene glycol 3350 17 gram Powder In Packet 17 g PO DAILY PRN (Reason: Constipation) Qty: 30 0RF Discharge Orders: Discharge Order (Routine); Ordered 06/09/25 Ordered By: Phil Hunter Diet: Advance to usual diet Activity on Discharge: As tolerated Stand Alone Forms: Patient Portal Discharge page Print Language: Maltese Other Ambulatory Orders: Basic Metabolic Panel (Routine) Timeframe: 1 Week Facility: [facility] - Location: Laboratory Ordered By: Phil Hunter Care Plan Goals: as below. Health Concerns: Flomax/Proscar as prescribed Laxative as above. Monitor BMP outpatient. Encouraged for p.o. hydration/p.o. intake. Patient is to follow up with PCP and Urology outpatient. Plan of Treatment: As above. Assessment: As above. Patient Instructions: Avina Catheter Care, Avina Catheter Placement and Care (GEN), Urinary Leg Bag (GEN)
== END 2025-06-09 17:03 | disposition home or self-care (01) | DRG 726 ==
LOC: HO.ED 15:05 → HO.EDOVER 16:45 → HO.S3 17:18
PROVIDERS: Physician Assistant; Admitting Provider Nurse Practitioner Acute Care; Emergency Provider Emergency Medicine; PCP Family Medicine; Visit Provider Internal Medicine
DX: N40.1 Benign prostatic hyperplasia with lower urinary tract symptoms (principal); N17.9 Acute kidney failure, unspecified; K56.7 Ileus, unspecified; I25.10 Atherosclerotic heart disease of native coronary artery without angina pectoris; F17.210 Nicotine dependence, cigarettes, uncomplicated; Z71.6 Tobacco abuse counseling; R33.8 Other retention of urine
CPT/HCPCS: 36415; 74176; 80048; 80053; 81001; 83036; 83721; 84153; 85025; 85027; 99285; J1644

== ENCOUNTER → 2025-06-08 14:36 | Outpatient (BNV) | payer OTHER, SELFPAY | PROVIDERS: Emergency Provider Emergency Medicine; PCP Family Medicine; Visit Provider Nurse Practitioner Acute Care | DX: N17.9 Acute kidney failure, unspecified (principal); R33.9 Retention of urine, unspecified | CPT/HCPCS: 99223; 99239 ==

== ENCOUNTER → 2025-06-08 15:35 | Outpatient (BNV) | payer OTHER, SELFPAY | PROVIDERS: Admitting Provider Nurse Practitioner Acute Care; Emergency Provider Emergency Medicine; PCP Family Medicine; Visit Provider Radiology Diagnostic Radiology | DX: R18.8 Other ascites (principal); N36.8 Other specified disorders of urethra | CPT/HCPCS: 74176 ==

== ENCOUNTER → 2025-06-08 16:34 | Outpatient (BNV) | payer OTHER, SELFPAY | PROVIDERS: Admitting Provider Nurse Practitioner Acute Care; Emergency Provider Emergency Medicine; PCP Family Medicine; Visit Provider Urology | DX: R33.9 Retention of urine, unspecified (principal); N17.9 Acute kidney failure, unspecified | CPT/HCPCS: 99223 ==

== ENCOUNTER 2025-06-17 08:17 | Outpatient (AMB) | payer OTHER, SELFPAY ==
--- NOTE | 2025-06-17 08:21 | MHC.PC.OV ---
Vital Signs 06/17/25 08:23 Height 5 ft 8 in Weight 162 lb 6 oz BMI 24.7 BP 132/64 Blood Pressure Location Lt brachial Position Sitting Pulse 67 Pulse Source Pulse Oximeter Temp 97.1 F Temp Source Temporal Artery Scan Pulse Oximetry (%) 97 Oxygen Delivery Method Room Air Intake Visit Reasons: Urine probleM Intake Note: Patient is a new patient here to establish care for Cardiac issues. Transferring care from unknown. Medical records have not been requested and have not received.Patient is here to follow up on Urine problem. Cfo Required: No Associate Store Manager: Not Required per policy Accompanied by: Self / Same As Patient Allergies No Known Allergies Allergy (Verified 06/17/25 08:23) Tobacco use date assessed: 06/17/25 Fall risk assessment: No Falls in past year Last assessed Fall Risk: 06/17/25 Dental Screening Dental Screen Date: 06/17/25 Did you have a dental visit in the last 12 months?: No Did you have a dental problem in the last 6 months where you did not have access to dental care?: No Was dental information given to patient?: No (Dentures) HPI HPI Comments History of Present Illness Details Patient is a 70-year-old male who is presenting to establish care. Patient presented to the ED on 06/08/2025 with complaints of urinary retention and inability to urinate, had Escobar catheter placed that drained 1300 cc of urine, was found to have USMAN with creatinine of 6.5 and abdomen/pelvis CT scan showing enlarged prostate without hydronephrosis. He was admitted for obstructive uropathy. UA was negative for UTI. Also found to have elevated PSA of 11.3. Patient was seen by Dr. Rosario urologist who recommended starting Flomax and finasteride. Kidney function normalized and patient discharged next day with Escobar catheter in place. Today, patient reports discomfort due to the Escobar catheter primarily when the catheter pulls, aggravated with moving. States Tylenol only provided temporary relief. Denies burning, fever, chills or abnormal discharge. Patient has not seen a doctor in many years. Only sees urgent care as needed. Denies any medical history prior to recent diagnosis of BPH. Denies any significant family history. 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 Smokes pack of cigarettes a day for 50+ years, occasional marijuana smoking. Few beers every once in a while. [facility] Medical History (Updated 06/17/25 @ 09:47 by Shikha Da Silva MD) Acute renal failure High anion gap metabolic acidosis Coronary artery disease Urinary retention with incomplete bladder emptying Surgical History S/P drug eluting coronary stent placement S/P LASIK surgery Family History (Updated 06/17/25 @ 08:21 by RHIANNA Cabral) Father Influenza Social History (Updated 06/17/25 @ 08:32 by RHIANNA Cabral) Household Members: Significant Other Housing: House Do you presently have visiting nurse or other home services: No Alcohol intake: current Alcohol intake frequency: a few times a month Alcohol type: beer Patient Tobacco Use Status: Current everyday Tobacco user Tobacco use type: Cigarette Cigarette Packs Per Day: 1 Cigarettes Per Day: 20 e-Cigarette/Vaping Use: Never Used Second Hand Smoke Exposure: Yes service: No Current occupational status: employed 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 1. Little interest or pleasure in doing things: nearly every day 2. Feeling down, depressed, or hopeless: nearly every day 3. Trouble falling or staying asleep, or sleeping too much: not at all 4. Feeling tired or having little energy: several days 5. Poor appetite or overeating: not at all 6. Feeling bad about yourself - or that you are a failure or have let yourself or your family down: not at all 7. Trouble concentrating on things, such as reading the newspaper or watching television: not at all 8. Moving or speaking so slowly that other people could have noticed. Or the opposite - being so fidgety or restless that you have been moving around a lot more than usual: not at all 9. Thoughts that you would be better off or of hurting yourself in some way: not at all Total score: 7 Depression Screening Interpretation: Positive Depression Screening Done: Yes Source: Developed by Drs. Fam Pelayo, Thelma B.WCarter Dominguez and colleagues, with an educational masha from [employer]. Thrive Questionnaire Date Thrive assessed: 06/09/25 I am a: Patient What is your living situation today?: I have a steady place to live Within the past 12 months, did the food you bought not last and you didn't have the money to get more?: Never true Within the past 12 months, did you worry whether your food would run out before you got money to buy more?: Never true Do you have trouble paying for medicines?: No Do you have trouble getting transportation to medical appointments?: No Do you have trouble paying your heating and electricity bill?: No Do you have trouble taking care of your child, family member or friend?: No Do you have trouble with day-to-day activities such as bathing, preparing meals, shopping, managing finances, etc.?: No Are you currently unemployed and looking for a job?: No Are you interested in more education?: No Please select the resources that you would like help with: None Currently or been in a relationship where the following occur: No concerns reported THRIVE Score: 0 AUDIT C Alcohol Use Questionnaire (AUDIT-C) 1. How often do you have a drink containing alcohol?: 2-4 times a month 2. How many drinks containing alcohol do you have on a typical day when you are drinking?: 3 or 4 3. How often do you have six or more drinks on one occasion?: Never Total Score: 3 DAYANA-7 AMB Questionnaire DAYANA-7 Date DAYANA - 7 assessed: 06/17/25 Feeling nervous, anxious, or on edge: 0 = Not at all Not being able to stop or control worryin = Not at all Worrying too much about different things: 0 = Not at all Trouble relaxin = Not at all Being so restless that it is hard to sit still: 0 = Not at all Becoming easily annoyed or irritable: 0 = Not at all Feeling afraid as if something awful might happen: 0 = Not at all Total DAYANA-7 score (0-4 normal; 5-9 mild; 10-14 moderate; 15-21 severe): 0 Source: Developed by Drs. Fam Pelayo, Carter Dominguez and colleagues, with an educational masha from Results Scorecard. Physical exam (Primary Care) Vital Signs: Last Vital Signs Temp 97.1 F 06/17/25 08:23 Pulse 67 06/17/25 08:23 BP 132/64 06/17/25 08:23 Pulse Ox 97 06/17/25 08:23 Oxygen Delivery Method Room Air 06/17/25 08:23 General: Well-appearing, alert, oriented ?3, in no acute distress.. Cardiovascular: RRR, S1-S2 appreciated, no murmurs, rubs or gallops. Respiratory: Lungs clear to auscultation bilaterally, no wheezes, rales or rhonchi. Abdomen: Soft, nontender, nondistended. Normoactive bowel sounds. Escobar catheter bag attached to the left leg with clear urine in the bag. BMI result Body Mass Index 24.7 Tobacco/Smoking Status: Tobacco use Status Tobacco use date assessed 06/17/25 06/17/25 08:34 Patient Tobacco Use Status Current everyday Tobacco 06/17/25 08:34 Tobacco use type Cigarette 06/17/25 08:34 e-Cigarette/Vaping Use Never Used 06/17/25 08:34 PHQ-9: PHQ-9 Score PHQ-9: Total score 7 06/17/25 08:34 Depression Screening Interpretation: Positive Thrive Assessment: Date of Thrive Assessment Date Thrive assessed 06/09/25 06/17/25 08:34 Currently or been in a relationship where the following occur: No concerns reported Coding Level of Care Code New Pt Level 4 (87355) Diagnoses Establishing care with new doctor, encounter for Z76.89 Benign prostatic hyperplasia with lower urinary tract symptoms, symptom details unspecified N40.1 Lower urinary tract symptom presence: symptoms present Lower urinary tract symptom detail: unspecified Escobar catheter in place Z97.8 Assessment & Plan Assessment & Plan (1) Establishing care with new doctor, encounter for: Code(s): Z76.89 - Persons encountering health services in other specified circumstances Plan: Patient is a 70-year-old male presenting to establish care. - annual PE 3 months (2) BPH (benign prostatic hyperplasia): Code(s): N40.0 - Benign prostatic hyperplasia without lower urinary tract symptoms Category: Medical Qualifiers: Lower urinary tract symptom presence: symptoms present Lower urinary tract symptom detail: unspecified Qualified Code(s): N40.1 - Benign prostatic hyperplasia with lower urinary tract symptoms Plan: Patient with recently diagnosed BPH after presenting to the ED with urinary retention inability to urinate, draining 1300 cc of urine after Escobar catheter placement. Abdomen/pelvis CT scan showed enlarged prostate without hydronephrosis, and PSA of 11.3. At that time, he was found to have USMAN that resolved s/p Escobar catheter placement. He was started on tamsulosin 0.4 mg and finasteride 5 mg daily, they reports compliance with. Currently has Escobar catheter in place. Has a follow up appointment with urologist Dr. Rosario on 07/06 Repeat BMP to follow up on kidney function. (3) Escobar catheter in place: Code(s): Z97.8 - Presence of other specified devices Category: Medical Plan: Discomfort due to the Escobar catheter primarily when the catheter pulls, aggravated with moving. States Tylenol only provided temporary relief. Denies burning, fever, chills or abnormal discharge. - obtain UA to rule out UTI - lidocaine cream to apply around the catheter area TID prn Orders: Orders Complete Blood Count Auto Diff Today D72.829 - Elevated white blood cell count, unspecified UA CC w/rflx Micro + Cult Today R33.9 - Retention of urine, unspecified Lipid Panel with Reflex Today Z76.89 - Persons encountering health services in other specified circumstances Medications: New lidocaine 3% 1 appl topical TID PRN 28.35 grams 0RF pain
[2025-06-17 08:23] VITALS: BP 132/64; PULSE 67; TEMP 36.2; O2SAT 97; BMI 24.7
--- OUTSIDE RECORDS SUMMARY | 2025-06-17 08:38 | XMS_ITS | Clinical Summary ---
Author Organization [facility] Address [address] [place] [address] Phone Care Team Providers Care Quantitative Analyst Marketing Name Role Phone Saw Walden MD Primary Care Provider [phone] Medical History Medical History Date Comments Hypertension 12/27/2017 DX:Hypertension Depression 12/27/2017 DX:Depression Anxiety 12/27/2017 DX:Anxiety Vitamin D deficiency 12/27/2017 DX:Vitamin D deficiency Hyperlipidemia 12/27/2017 DX:Hyperlipidemi a CAD (coronary artery disease) 12/09/2017 DX :CAD (coronary artery disease); COMMENT: 01/2014 EF 60-65%; [place] 03/2011 d/t cocaine use, s/p RCA stent with repeat stenting and angioplasty. Dr. Dawn; Erectile dysfunction 12/09/2017 DX:Erectile dysfunction Tobacco dependence 12/09/2017 DX:Tobacco de pendence History of substance abuse ( [facility] V24, [facility] V28) 04/09/2018 DX:History of substance abus e ([facility]); COMMENT: 2012 hx alcohol w/d; cocaine [...] PM EST Narrative 08/21/2023 10:26 AM EST [facility] Diagnostic Imaging Department [address] [place] [address] Patient: GONZALEZ JOAQUIN D.O.B./Age/Sex: 1955 - 68 - M Unit#: [id number] Location/Status: SPDICATLS/REG CLI Mnemonic/Ordering Site: [facility] Ordering Physician: HARRISON KUMAR MD CT Lung Screening Low Dose - 08/15/23 - 1256 Report Status:Signed History: 68 year-old 56 pack-year current smoker, asymptomatic, for lung cancer screening. Known coronary artery disease. Asbestos exposure. Comparison: 07/24/22 Technique: Helical volumetric imaging of the thorax was performed, using low- dose technique, without IV contrast. DLP: 188.80 mGy/cm CTDIvol: 4.83 mGy [employer] VCT Iterative reconstruction technique Findings: Lungs and [...] annual screening with LDCT in 12 months. [id number] G9637 G9557 G9551 Dictating Physician: MERLE SHIPLEY MD Electronically Signed by: MERLE SHIPLEY MD Dic Date/Time: 08/21/23 1015 Sign date/Time: 08/21/23 1026 Procedure Note Merle Shipley MD - 03/30/2024 [facility] Diagnostic Imaging Department [address] [place] [address] [id number] Patient: GONZALEZ JOAQUIN /Age/Sex: 1955 - 68 - M Unit#: [id number] Location/Status: SPDICATLS/REG CLI Mnemonic/Ordering Site: [facility] Ordering Physician: HARRISON KUMAR MD CT Lung Screening Low Dose - 08/15/23 - 1256 Report Status:Signed History: 68 year-old 56 pack-year current smoker, asymptomatic, for lungcancer screening. Known coronary artery disease. Asbestos exposure. Comparison: 07/24/22 Technique: Helical volumetric imaging of the thorax was performed, usinglow- dose technique, without IV contrast. DLP: 188.80 mGy/cm CTDIvol: 4.83 mGy [employer] VCT Iterative reconstruction technique Findings: Lungs and Airways: The trachea and central bronchial tree remain patent. Centrilobular and paraseptal emphysema are again noted. Minimal discoid atelectasis or scar is present at the lung bases, unchanged. A 3 mm solid, noncalcified nodule is seen in the right lower lobe ([id number] series 3), unchanged. Rare sub-3 mm nodules [...] Continue annual screeningwith LDCT in 12 months. 67962 G9637 G9557 G9551 Dictating Physician: MERLE SHIPLEY [...] Recently Relevant to Health Maintenance Insurance [facility]ICARE [facility] Care Teams Quantitative Analyst Marketing Relationship Specialty Start Date End Date Saw Walden MD PCP - General Internal Medicine 12/08/21
== END 2025-06-17 09:04 | disposition home or self-care (01) ==
PROVIDERS: PCP Student in an Organized Health Care Education/Training Program; Visit Provider Student in an Organized Health Care Education/Training Program
DX: N40.1 Benign prostatic hyperplasia with lower urinary tract symptoms (principal); Z97.8 Presence of other specified devices

== ENCOUNTER 2025-06-17 08:17 | Outpatient (REF) | payer OTHER, SELFPAY ==
[2025-06-17 09:26] LABS: MANUAL DIFF FLAG NO
[2025-06-17 09:49] LABS: Hematocrit 46.7 % (42.0-52.0); Hemoglobin 16.0 g/dl (14.0-18.0); Imm Gran Abs Auto 0.03 X10*3/uL (0.00-0.03); Imm Gran Pct Auto 0.3 % (0.0-0.4); Lymphocytes Absolute Auto 2.2 X10*3/uL (1.2-4.9); Mean Corpuscular HGB Conc 34.3 g/dl (31.0-36.0); Mean Corpuscular Hemoglobin 32.3 pg (27.0-33.0); Mean Corpuscular Volume 94.2 fL (80.0-98.0); NRBC Abs Auto 0.000 X10*3/uL (0.0-0.012); NRBC Pct Auto 0.0 /100WBC (0.0-0.2); Platelet Count 314 X10*3/uL (160-400); Red Blood Count 4.96 X10*6/uL (4.60-5.80); White Blood Count 9.7 X10*3/uL (4.8-10.8)
[2025-06-17 10:31] LABS: Anion Gap 13 (12-20); Blood Urea Nitrogen 9 mg/dL (9-16); Calcium 9.1 mg/dL (8.4-10.2); Carbon Dioxide 28 mmol/L (22-29); Chloride 104 mmol/L (96-108); Cholesterol 207 mg/dL (<200); Estimated Glomerular Filt Rate > 60; HDL Cholesterol 56 mg/dL (>40); Potassium 4.3 mmol/L (3.3-5.1); Sodium 141 mmol/L (135-145); Triglycerides 81 mg/dL (<150)
[2025-06-17 10:39] LABS: Appearance Urine Cloudy; Glucose Urine UA Negative (Negative); PH 7.0 (5.0-9.0); Specific Gravity - Urine 1.015 (1.005-1.025); UMIC TRIGGER UACC YES
[2025-06-17 10:44] LABS: UACC Culture Trigger YES
[2025-06-17 11:22] LABS: Reflex LDLD? No
== END 2025-06-17 08:18 | disposition home or self-care (01) ==
LOC: HO.LAB 08:17
PROVIDERS: PCP Student in an Organized Health Care Education/Training Program; Visit Provider Student in an Organized Health Care Education/Training Program
DX: N40.1 Benign prostatic hyperplasia with lower urinary tract symptoms (principal); N17.9 Acute kidney failure, unspecified; D72.829 Elevated white blood cell count, unspecified; F17.210 Nicotine dependence, cigarettes, uncomplicated; R33.8 Other retention of urine; Z97.8 Presence of other specified devices; Z96.0 Presence of urogenital implants; Z76.89 Persons encountering health services in other specified circumstances
CPT/HCPCS: 36415; 80048; 80061; 81001; 81003; 85025; 87086; 87088; 87186

== ENCOUNTER → 2025-07-06 08:21 | Outpatient (BNVA) | payer OTHER, SELFPAY | PROVIDERS: PCP Family Medicine; Visit Provider Urology | DX: N40.1 Benign prostatic hyperplasia with lower urinary tract symptoms (principal); R33.8 Other retention of urine; Z97.8 Presence of other specified devices | CPT/HCPCS: 51700; 51702; 51798 ==

== ENCOUNTER → 2025-08-03 08:34 | Outpatient (BNVA) | payer OTHER, SELFPAY | PROVIDERS: PCP Family Medicine; Visit Provider Urology | DX: R33.9 Retention of urine, unspecified (principal) | CPT/HCPCS: 51700; 51798 ==

== ENCOUNTER 2025-08-03 23:45 | Emergency (ER) | payer OTHER, SELFPAY ==
[2025-08-03 23:51] VITALS: BP 154/79; PULSE 94; RESP 26; TEMP 36.1; O2SAT 96; BMI 24.8
--- NOTE | 2025-08-03 23:58 | ED.MALEGU ---
HPI - Male Genitourinary General Chief complaint: Urogenital-Male Stated complaint: Catheter removed this morning, unable to urinate Time Seen by Provider: 08/03/25 23:52 Source: patient, RN notes reviewed and old records reviewed Mode of arrival: ambulatory Limitations: no limitations History of Present Illness ED Provider: Bernabe HPI Narrative: 70-year-old male past medical history significant for BPH told by Dr. Rosario presents for evaluation of urinary retention. He had a Escobar catheter removed this morning in the urology office. He was able to urinate in the office and then again around 1:30 p.m.. He reports he has been unable to urinate since then and has severe lower abdominal pain. Denies any fevers or chills denies any other symptoms including nausea vomiting, diarrhea Related Data Previous Rx's ?Medication ?Instructions ?Recorded docusate sodium 100 mg capsule 100 mg PO BID PRN constipation #60 06/09/25 caps finasteride 5 mg tablet 5 mg PO DAILY #90 tabs 06/09/25 polyethylene glycol 3350 17 gram 17 g PO DAILY PRN Constipation #30 06/09/25 oral powder packet ea tamsulosin 0.4 mg capsule 0.4 mg PO DAILY #90 caps 06/09/25 Urinary leg bag for f/c #2 ea 06/17/25 lidocaine 3 % topical cream 1 appl topical TID PRN pain #28.35 06/17/25 grams sulfamethoxazole 800 1 tab PO BID Urinary tract 06/17/25 mg-trimethoprim 160 mg tablet infection 7 days #14 tabs (Bactrim DS) Allergies Allergy/AdvReac Type Severity Reaction Status Date / Time No Known Allergies Allergy Verified 08/03/25 23:52 Review of Systems Constitutional: Constitutional: Denies body ache(s), Denies chills and Denies fever(s) Eyes: Eyes: Denies blurry vision ENT: Denies dizziness Gastrointestinal: Gastrointestinal: Reports abdominal pain, Denies nausea and Denies vomiting Genitourinary: Genitourinary: Reports difficulty urinating Neurologic: Denies dizziness PMFSH Past Medical History Medical History (Updated 08/04/25 @ 00:52 by Kenn Kidd) Acute renal failure High anion gap metabolic acidosis Coronary artery disease Urinary retention with incomplete bladder emptying Surgical History S/P drug eluting coronary stent placement S/P LASIK surgery Family History Family History (Updated 06/17/25 @ 08:21 by RHIANNA Cabral) Father Influenza Social History Social History (Updated 06/17/25 @ 08:32 by RHIANNA Cabral) Household Members: Significant Other Housing: House Do you presently have visiting nurse or other home services: No Alcohol intake: current Alcohol intake frequency: a few times a month Alcohol type: beer Patient Tobacco Use Status: Current everyday Tobacco user Tobacco use type: Cigarette Cigarette Packs Per Day: 1 Cigarettes Per Day: 20 Smoked in Last 30 Days: Yes e-Cigarette/Vaping Use: Never Used Second Hand Smoke Exposure: Yes Use of substances other than those prescribed or required for medical reasons: No Do you have a plan to hurt others: No Plan service: No Current occupational status: employed 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 Cognitive needs: No Hearing needs: No Vision needs: Yes (Glasses) Physical Exam Vital Signs: Vital Signs: Last Vital Signs Temp 97 F 08/03/25 23:51 Pulse 94 08/03/25 23:51 Resp 26 H 08/03/25 23:51 BP 154/79 H 08/03/25 23:51 Pulse Ox 96 08/03/25 23:51 O2 Del Method Room Air 08/03/25 23:51 BMI result Body Mass Index 24.8 Const: General: healthy appearing, no acute distress, alert and awake Nutritional Appearance: well nourished Orientation/consciousness: patient oriented x3 HEENT: Head: Yes normocephalic and Yes atraumatic Eyes: Eyelids: Yes eyelids normal Conjunctivae: conjunctivae normal Sclerae: sclerae normal Corneas: corneas normal Pupils: Equal, round and reactive pupils present EOM: EOMs intact bilaterally Neck: Neck: Yes full ROM Resp: Effort & Inspection: normal respiratory effort, able to speak in complete sentences and not labored GI: Inspection: Yes distended (lower abdomen) Palpation (GI): Soft to palpation, not firm, Tenderness to palpation present (GI), Guarding due to palpation present (GI) and not rigid Skin: General skin exam: elasticity normal Neuro: General: patient oriented x3 Cranial nerves: Yes Equal, round and reactive pupils present and Yes Bilaterally intact EOM present Cognition (Neuro): normal cognition Course Reevaluation(s) Reevaluation #1: the patient had approximately 1700 cc of clear, pink to red urine drain immediately after insertion of the Escobar catheter. We will send for urinalysis Time: 00:35 Reevaluation #2: the patient's urinalysis is consistent with a UTI, we will treat with cefuroxime b.i.d. x7 days given that he has a Escobar catheter. He will be referred back to his urologist, no evidence of sepsis Time: 00:49 Medical Decision Making Medical Decision Making MDM Narrative: 70-year-old male with history of BPH presents for evaluation of urinary retention after having a Escobar catheter removed this morning. Given that this is a very acute issue over the last 12 hours I do not think labs are warranted at this time. Bladder scan shows over a L was in the bladder. A Escobar catheter will be placed then we can send a sample for urinalysis Differential Diagnosis Differential Diagnoses: The differential diagnosis associated with the presentation includes urinary retention BPH UTI abdominal pain Lab Data Labs: Lab Results 08/04/25 Range/Units 00:24 Urine Color Biggers A Urine Appearance Cloudy Urine pH 6.0 (5.0-9.0) Ur Specific [place] 1.010 (1.005-1.025) Urine Protein 100 (2+) H (Neg-Trace) mg/dL Urine Glucose (UA) Negative (Negative) mg/dL Urine Ketones Negative (Negative) mg/dL Urine Blood Large (3+) H (Negative) Urine Nitrite Positive H (Negative) Ur Leukocyte Esterase Large (3+) H (Negative) Urine RBC >20 H (0-2) /HPF Urine WBC >50 H (0-5) /HPF Ur Squamous Epith Cells 0-2 (0-2) /HPF Urine Bacteria 4+ (None Seen) Hyaline Casts 0-2 (0-2) /LPF Discharge Plan Discharge Clinical Impression: Acute urinary retention, Urinary tract infection Patient Disposition: Home, Self-Care Instructions: Urinary Retention in Men (ED), Escobar Catheter Placement and Care (ED), Urinary Tract Infection in Men (ED) Additional Instructions: your urinalysis is consistent with a UTI. A Escobar catheter was placed again due to urinary retention. Call your urologist, Dr. Rosario tomorrow morning to schedule follow up [facility] will be contacting you within 2 business?days after being discharged from the Emergency?Department.? During this?phone call, they will inform you when your follow up appointment will be scheduled. If you have not received a call from [facility] after 2 business?days, please call the?office at [phone]. Prescriptions: No Action (DME) Urinary leg bag for f/c See Rx Instructions .Route .MEDSUPPLY Qty: 2 5RF Rx Instructions: As directed sulfamethoxazole-trimethoprim [Bactrim DS] 800-160 mg tablet 1 tab PO BID 7 Days Qty: 14 0RF tamsulosin 0.4 mg Capsule 0.4 mg PO DAILY Qty: 90 0RF docusate sodium 100 mg Capsule 100 mg PO BID PRN (Reason: constipation) Qty: 60 0RF polyethylene glycol 3350 17 gram Powder In Packet 17 g PO DAILY PRN (Reason: Constipation) Qty: 30 0RF finasteride 5 mg Tablet 5 mg PO DAILY Qty: 90 0RF lidocaine 3 % cream 1 appl topical TID PRN (Reason: pain) Qty: 28.35 0RF Print Language: Kyrgyz
--- NOTE | 2025-08-04 00:04 | PC.NURSE ---
pt a&ox4, respirations even and unlabored. pt reports catheter removal at 130 pm and not has voided since. on arrival, pt uncomfortable and unable to sit in bed. bladder scan >1600. HUNG Eaton notified. 16F avina placed, pt tolerated fair. initially hematuria was present and then dark yellow urine. 1700ml voided
--- NOTE | 2025-08-04 00:27 | PC.NURSE ---
pt given leg bag and educated on use at this time. urine sample obtained and sent
[2025-08-04 00:46] LABS: Appearance Urine Cloudy; Glucose Urine UA Negative (Negative); PH 6.0 (5.0-9.0); Specific Gravity - Urine 1.010 (1.005-1.025); UMIC TRIGGER UACC YES
[2025-08-04 00:47] LABS: UACC Culture Trigger YES
[2025-08-04 01:07] VITALS: BP 131/91; PULSE 67; RESP 16; TEMP 36.7; O2SAT 98
--- OUTSIDE RECORDS SUMMARY | 2025-08-04 01:13 | XMS_ITS | Clinical Summary ---
Author Organization [facility] Address [address] [place] [address] Phone Care Team Providers Care Scrip Clerk Name Role Phone Saw Walden MD Primary Care Provider [phone] Medical History Medical History Date Comments Hypertension 12/27/2017 DX:Hypertension Depression 12/27/2017 DX:Depression Anxiety 12/27/2017 DX:Anxiety Vitamin D deficiency 12/27/2017 DX:Vitamin D deficiency Hyperlipidemia 12/27/2017 DX:Hyperlipidemi a CAD (coronary artery disease) 12/09/2017 DX :CAD (coronary artery disease); COMMENT: 01/2014 EF 60-65%; NE 03/2011 d/t cocaine use, s/p RCA stent with repeat stenting and angioplasty. Dr. Dawn; Erectile dysfunction 12/09/2017 DX:Erectile dysfunction Tobacco dependence 12/09/2017 DX:Tobacco de pendence History of substance abuse ( [facility] V24, [facility] V28) 04/09/2018 DX:History of substance abus e ([facility]); COMMENT: 2012 hx alcohol w/d; cocaine Prediabetes [...] on file Sexual Orientation Not on file Last Filed Vital Signs Vital Sign Reading Time Taken Comments Blood Pressure 126/58 09/12/2023 1:36 PM EST Pulse 64 09/12/2023 1:19 PM EST Temperature - - Respiratory Rate - - Oxygen Saturation - - Inhaled Oxygen Concentration - - Weight 79.2 kg (174 lb 11.2 oz) 09/12/2023 1:19 PM EST Height 170.2 cm (5' 7 ) 04/12/2023 2:17 PM EDT Body Mass Index 27.36 04/12/2023 [...] Depression Screening 08/12/2024 COVID-19 Vaccine (1 - 2024-2 6 season) 2025 Influenza Vaccine (#1) 2025 RSV [...] PM EST Narrative 08/21/2023 10:26 AM EST [facility] Diagnostic Imaging Department [address] [place] [address] Patient: GONZALEZ JOAQUIN D.O.B./Age/Sex: 1955 - 68 - M Unit#: [id number] Location/Status: SPDICATLS/REG CLI Mnemonic/Ordering Site: [facility] Ordering Physician: HARRISON KUMAR MD CT Lung Screening Low Dose - 08/15/23 - 1256 Report Status:Signed History: 68 year-old 56 pack-year current smoker, asymptomatic, for lung cancer screening. Known coronary artery disease. Asbestos exposure. Comparison: 07/24/22 Technique: Helical volumetric imaging of the thorax was performed, using low- dose technique, without IV contrast. DLP: 188.80 mGy/cm CTDIvol: 4.83 mGy [place] VCT Iterative reconstruction technique Findings: Lungs and [...] annual screening with LDCT in 12 months. [id number] [id number] [id number] Dictating Physician: MERLE SHIPLEY MD Electronically Signed by: MERLE SHIPLEY MD Dic Date/Time: 08/21/23 1015 Sign date/Time: 08/21/23 1026 Procedure Note Merle Shipley MD - 03/30/2024 [facility] Diagnostic Imaging Department [address] [place] [address] Patient: GONZALEZ JOAQUIN /Age/Sex: 1955 - 68 - M Unit#: [id number] Location/Status: SPDICATLS/REG CLI [facility] Ordering Physician: HARRISON KUMAR MD CT Lung Screening Low Dose - 08/15/23 - 1256 Report Status:Signed History: 68 year-old 56 pack-year current smoker, asymptomatic, for lungcancer screening. Known coronary artery disease. Asbestos exposure. Comparison: 07/24/22 Technique: Helical volumetric imaging of the thorax was performed, usinglow- dose technique, without IV contrast. DLP: 188.80 mGy/cm CTDIvol: 4.83 mGy [employer] VCT Iterative reconstruction technique Findings: Lungs and Airways: The trachea and central bronchial tree remain patent. Centrilobular and paraseptal emphysema are again noted. Minimal discoid atelectasis or scar is present at the lung bases, unchanged. A 3 mm solid, noncalcified nodule is seen in the right lower lobe ( series 3), unchanged. Rare sub-3 mm nodules [...] Continue annual screeningwith LDCT in 12 months. [id number] [id number] [id number] Dictating Physician: MERLE SHIPLEY [...] Recently Relevant to Health Maintenance Insurance MEDICARE [facility] Care Teams Scrip Clerk Relationship Specialty Start Date End Date Saw Walden MD PCP - General Internal Medicine 12/08/21
== END 2025-08-04 01:14 | disposition home or self-care (01) ==
LOC: HO.ED 08-04 01:10
PROVIDERS: Physician Assistant; Emergency Provider Emergency Medicine; PCP Internal Medicine
DX: N39.0 Urinary tract infection, site not specified (principal); B96.1 Klebsiella pneumoniae [K. pneumoniae] as the cause of diseases classified elsewhere; R33.9 Retention of urine, unspecified; N40.1 Benign prostatic hyperplasia with lower urinary tract symptoms; F17.210 Nicotine dependence, cigarettes, uncomplicated
CPT/HCPCS: 51702; 81001; 87086; 87088; 87186; 99284; 99285